=== PATIENT | male | born 1990 | race Caucasian/White ===

== ENCOUNTER → 2021-01-25 | Outpatient (CLI) | payer SELFPAY ==
[~2021-01-25] MED LIST: FLUO20CA22 PO
== END ==
LOC: M LABSMTC 13:57
PROVIDERS: ATTEND Pediatrics
DX: Z20.828 Contact with and (suspected) exposure to other viral communicable diseases (principal); Z11.59 Encounter for screening for other viral diseases

== ENCOUNTER → 2024-07-05 | Outpatient (REF) | payer OTHER ==
[~2024-07-05] MED LIST changes: +FLUO-365 PO; -FLUO20CA22 PO
== END ==
LOC: M SFHCPLAZ 12:01
PROVIDERS: ATTEND Family Medicine
DX: Z11.9 Encounter for screening for infectious and parasitic diseases, unspecified (principal); E66.9 Obesity, unspecified